=== PATIENT | female | born 1985 | race Caucasian/White ===

== ENCOUNTER 2018-07-19 13:00 | Inpatient (IN) | payer OTHER ==
[~2018-07-19] VITALS: Ht 160 cm; Wt 87.1 kg
[2018-08-15] MEDS ORDERED: PRENATAL TABLE1 EAC4 PO (17:49)
== END 2018-08-18 12:53 | DRG 775 ==
LOC: LDR 08-14 13:00 → OB/GYN 08-16 18:11
PROC: 4A1HXCZ Monitoring of Products of Conception, Cardiac Rate, External Approach (ICD-10-PCS; 2018-08-15)
PROC: 10D07Z6 Extraction of Products of Conception, Vacuum, Via Natural or Artificial Opening (ICD-10-PCS; principal; 2018-08-16)
PROC: 0KQM0ZZ Repair Perineum Muscle, Open Approach (ICD-10-PCS; 2018-08-16)
PROC: 0W8NXZZ Division of Female Perineum, External Approach (ICD-10-PCS; 2018-08-16)
PROC: 3E033VJ Introduction of Other Hormone into Peripheral Vein, Percutaneous Approach (ICD-10-PCS; 2018-08-16)
PROC: 4A033R1 Measurement of Arterial Saturation, Peripheral, Percutaneous Approach (ICD-10-PCS; 2018-08-16)
DX: O70.1 Second degree perineal laceration during delivery (principal); O66.5 Attempted application of vacuum extractor and forceps; Z37.0 Single live birth; Z3A.40 40 weeks gestation of pregnancy

== ENCOUNTER → 2018-08-05 | Outpatient (CLI) | payer OTHER | END | disposition home or self-care (01) | LOC: NST 15:04 | DX: Z34.83 Encounter for supervision of other normal pregnancy, third trimester (principal) ==

== ENCOUNTER 2018-08-09 10:40 | Outpatient (CLI) | payer OTHER | END 2018-08-09 11:34 | disposition home or self-care (01) | LOC: NST 10:40 | DX: Z34.83 Encounter for supervision of other normal pregnancy, third trimester (principal) ==

== ENCOUNTER 2018-08-15 09:33 | Outpatient (CLI) | payer OTHER ==
[2018-08-15] MEDS ORDERED: PRENATAL TABLE1 EAC4 PO (17:49)
== END 2018-08-15 10:19 | disposition home or self-care (01) ==
LOC: NST 09:33
DX: O48.0 Post-term pregnancy (principal); Z34.83 Encounter for supervision of other normal pregnancy, third trimester